=== PATIENT | male | born 1960 | race Caucasian/White ===

== ENCOUNTER 2022-03-27 06:24 | Inpatient (IN) | payer OTHER, MEDICAID ==
[~2022-03-27] VITALS: Ht 182.9 cm; Wt 65.9 kg
[2022-03-27 07:09] LABS: BASO % 0.3 % (0.0-1.0); HEMATOCRIT 38.8 % (42.0-52.0); HEMOGLOBIN 12.9 g/dl (13.5-17.5); LYMPH # 0.8 10^3/uL (1.5-5.0); MEAN CORPUSCULAR HEMOGLOBIN 29.4 pg (27.0-33.0); MEAN CORPUSCULAR HGB CONC 33.2 g/dl (32.0-36.5); MEAN CORPUSCULAR VOLUME 88.4 fl (80.0-96.0); MONO # 0.7 10^3/uL (0.0-0.8); MONO % 4.6 % (2.0-8.0); NEUTROPHILS # 14.3 10^3/uL (1.5-8.5); NEUTROPHILS % 89.5 % (36.0-66.0); PLATELET COUNT, AUTOMATED 179 10^3/uL (150-450); RED BLOOD COUNT 4.39 10^6/uL (4.30-6.10)
[2022-03-27] MEDS ORDERED: NS 1,000 ML IV ONE ×2 (07:25→08:50)
[2022-03-27 07:30] LABS: CK-MB VALUE MASS 8.5 NG/ML (<3.6)
[2022-03-27 07:31] LABS: ETHYL ALCOHOL (ETHANOL) 0.014 % (0.000-0.010)
[2022-03-27 07:32] LABS: BILIRUBIN,DIRECT 0.3 MG/DL (<0.4)
[2022-03-27 07:33] LABS: ALBUMIN 4.1 G/DL (3.2-5.2); ALKALINE PHOSPHATASE 56 U/L (46-116); ALT/SGPT 103 U/L (7.0-40); AST/SGOT 71 U/L (<34); BILIRUBIN,TOTAL 0.6 MG/DL (0.3-1.2); BLOOD UREA NITROGEN 19 MG/DL (9-23); CALCIUM LEVEL 8.5 MG/DL (8.3-10.6); CARBON DIOXIDE LEVEL 18 MMOL/L (20-31); CHLORIDE LEVEL 100 MMOL/L (98-107); CREATININE FOR GFR 0.85 MG/DL (0.70-1.30); GLOMERULAR FILTRATION RATE > 60.0 (>49); GLUCOSE, FASTING 75 MG/DL (74-106); POTASSIUM SERUM 4.1 MMOL/L (3.5-5.1); RSV AMPLIFICATION NEGATIVE (NEGATIVE); SODIUM LEVEL 133 MMOL/L (136-145)
[2022-03-27 07:35] LABS: THYROID STIMULATING HORMONE 0.902 uIU/ML (0.55-4.78)
[2022-03-27 07:36] LABS: BARBITURATES URINE NEGATIVE (NEGATIVE); BENZODIAZEPINES URINE NEGATIVE (NEGATIVE); COCAINE METABOLITE URINE NEGATIVE (NEGATIVE); METHADONE URINE NEGATIVE (NEGATIVE); OPIATES URINE NEGATIVE (NEGATIVE); PHENCYCLIDINE URINE NEGATIVE (NEGATIVE)
[2022-03-27 07:39] LABS: AMPHETAMINES LEVEL URINE POSITIVE (NEGATIVE); CANNABINOIDS URINE POSITIVE (NEGATIVE)
[2022-03-27 07:39] LABS: CPK CREATINE PHOSPHOKINASE 460 U/L (46-171); MB/CK RELATIVE INDEX 1.84 (< OR =4)
[2022-03-27 07:55] LABS: ACETAMINOPHEN LEVEL < 2.0 UG/ML (10.0-20.0); SALICYLATE LEVEL < 3.0 MG/DL (<30)
[2022-03-27] MEDS ORDERED: LORazepam 2 MG TAB PO PRN (08:35)
[2022-03-27] MEDS ORDERED: THIAMINE 200MG 2ML VIAL IM ONE (08:35)
[2022-03-27] MEDS ORDERED: ISOVUE-370 76% 100ML VIAL As Ordered ONE (08:58)
[2022-03-27] MEDS ORDERED: HOME MED LIST COMPLETE! XX SCH (09:10)
[2022-03-27] MEDS: FOLIC ACID 1MG TAB PO SCH (09:19)
[2022-03-27] MEDS: MULTIVITAMINS/MINERALS THERAP 1 TAB PO SCH (09:19)
[2022-03-27] MEDS: ENOXAPARIN 40MG/0.4ML SYRINGE (J1650 PER 10MG) SC SCH (09:20)
[2022-03-27] MEDS: THIAMINE 100 MG TAB PO SCH (22:23)
[2022-03-28 08:19] LABS: HEMATOCRIT 37.3 % (42.0-52.0); HEMOGLOBIN 12.5 g/dl (13.5-17.5); MEAN CORPUSCULAR HEMOGLOBIN 29.8 pg (27.0-33.0); MEAN CORPUSCULAR HGB CONC 33.5 g/dl (32.0-36.5); PLATELET COUNT, AUTOMATED 153 10^3/uL (150-450); RED BLOOD COUNT 4.19 10^6/uL (4.30-6.10); WHITE BLOOD COUNT 6.2 10^3/uL (4.0-10.0)
[2022-03-28 08:40] LABS: MAGNESIUM LEVEL 2.1 MG/DL (1.8-2.4)
[2022-03-28 08:42] LABS: PHOSPHORUS LEVEL 2.8 MG/DL (2.4-5.1)
[2022-03-28 08:45] LABS: BLOOD UREA NITROGEN 16 MG/DL (9-23); CARBON DIOXIDE LEVEL 24 MMOL/L (20-31); CHLORIDE LEVEL 107 MMOL/L (98-107); CREATININE FOR GFR 0.73 MG/DL (0.70-1.30); GLOMERULAR FILTRATION RATE > 60.0 (>49); GLUCOSE, FASTING 108 MG/DL (74-106); SODIUM LEVEL 139 MMOL/L (136-145)
[2022-03-28 09:30] LABS: BILIRUBIN,DIRECT 0.1 MG/DL (<0.4)
[2022-03-28] MEDS: THIAMINE 100 MG TAB PO SCH (09:44)
[2022-03-28] MEDS: FOLIC ACID 1MG TAB PO SCH (09:44)
[2022-03-28] MEDS: MULTIVITAMINS/MINERALS THERAP 1 TAB PO SCH (09:44)
[2022-03-28] MEDS: ENOXAPARIN 40MG/0.4ML SYRINGE (J1650 PER 10MG) SC SCH (09:51)
[2022-03-28 10:02] LABS: ALKALINE PHOSPHATASE 47 U/L (46-116); ALT/SGPT 76 U/L (7.0-40); AST/SGOT 51 U/L (<34); BILIRUBIN,TOTAL 0.3 MG/DL (0.3-1.2); TOTAL PROTEIN 5.9 G/DL (5.7-8.2)
[2022-03-28 13:46] VITALS: BP 136/73
[2022-03-28] MEDS ORDERED: THIA100TA PO (15:40)
[2022-03-28] MEDS ORDERED: FOLI1TAB11 PO (15:40)
[2022-03-28] MEDS ORDERED: VITMTA PO (15:40)
== END 2022-03-28 17:30 | disposition home or self-care (01) | DRG 52 ==
LOC: M ED 06:24 → EDBD 06:24 → M ED INP 08:30 → CANRESERV 03-28 13:25 → ENRESERV 03-28 13:25
PROVIDERS: ADMIT Internal Medicine; ATTEND Internal Medicine
DX: G92.8 Other toxic encephalopathy (principal); E87.20 Acidosis, unspecified; T68.XXXA Hypothermia, initial encounter; F12.90 Cannabis use, unspecified, uncomplicated; F15.90 Other stimulant use, unspecified, uncomplicated; F10.10 Alcohol abuse, uncomplicated; D72.829 Elevated white blood cell count, unspecified; R10.9 Unspecified abdominal pain; Z91.119 Patient's noncompliance with dietary regimen due to unspecified reason; X31.XXXA Exposure to excessive natural cold, initial encounter

== ENCOUNTER → 2022-07-18 | Outpatient (REF) | payer OTHER, MEDICAID ==
[~2022-07-18] MED LIST: FOLI1TAB11 PO; THIA100TA PO; VITMTA PO
[2022-07-18 17:28] LABS: BASO % 0.6 % (0.0-1.0); EOS # 0.2 10^3/uL (0.0-0.5); EOS % 2.2 % (0.0-3.0); HEMATOCRIT 45.5 % (42.0-52.0); HEMOGLOBIN 14.5 g/dl (13.5-17.5); LYMPH # 2.2 10^3/uL (1.5-5.0); LYMPH % 32.8 % (24.0-44.0); MEAN CORPUSCULAR HEMOGLOBIN 28.3 pg (27.0-33.0); MEAN CORPUSCULAR HGB CONC 31.9 g/dl (32.0-36.5); MEAN CORPUSCULAR VOLUME 88.9 fl (80.0-96.0); MONO # 0.5 10^3/uL (0.0-0.8); MONO % 7.9 % (2.0-8.0); NEUTROPHILS # 3.8 10^3/uL (1.5-8.5); NEUTROPHILS % 56.2 % (36.0-66.0); PLATELET COUNT, AUTOMATED 173 10^3/uL (150-450); RED BLOOD COUNT 5.12 10^6/uL (4.30-6.10); WHITE BLOOD COUNT 6.7 10^3/uL (4.0-10.0)
[2022-07-18 17:52] LABS: ALBUMIN 3.8 G/DL (3.2-5.2); ALKALINE PHOSPHATASE 55 U/L (46-116); ALT/SGPT 131 U/L (7.0-40); AST/SGOT 56 U/L (<34); BILIRUBIN,TOTAL 0.5 MG/DL (0.3-1.2); BLOOD UREA NITROGEN 17 MG/DL (9-23); CALCIUM LEVEL 9.2 MG/DL (8.3-10.6); CARBON DIOXIDE LEVEL 29 MMOL/L (20-31); CHLORIDE LEVEL 105 MMOL/L (98-107); CHOLESTEROL LEVEL 216 MG/DL (<200); CHOLESTEROL RISK RATIO 4.18 (<5); CREATININE FOR GFR 0.89 MG/DL (0.70-1.30); GLOMERULAR FILTRATION RATE > 60.0 (>49); GLUCOSE, FASTING 61 MG/DL (74-106); HDL CHOLESTEROL 51.6 MG/DL (>40); LDL CHOLESTEROL 143.4 MG/DL (<100); NON-HDL-C 164.4 MG/DL; POTASSIUM SERUM 3.8 MMOL/L (3.5-5.1); SODIUM LEVEL 141 MMOL/L (136-145); TOTAL 25(OH) VITAMIN D 8.9 NG/ML (20.0-100.0); TOTAL PROTEIN 7.5 G/DL (5.7-8.2); TRIGLYCERIDES LEVEL 105 MG/DL (<150)
[2022-07-18 17:53] LABS: FOLATE 16.8 NG/ML (>5.4); THYROID STIMULATING HORMONE 1.711 uIU/ML (0.55-4.78)
[2022-07-18 17:54] LABS: VITAMIN B12 LEVEL 308 PG/ML (211-911)
[2022-07-18 17:55] LABS: HEMOGLOBIN A1c 5.1 % (4.0-6.0)
== END ==
LOC: M LAB REF 16:18
PROVIDERS: ATTEND Nurse Practitioner Family
DX: R63.6 Underweight (principal); R53.83 Other fatigue; Z11.9 Encounter for screening for infectious and parasitic diseases, unspecified; R41.3 Other amnesia; F10.20 Alcohol dependence, uncomplicated; E55.9 Vitamin D deficiency, unspecified; E11.9 Type 2 diabetes mellitus without complications

== ENCOUNTER 2022-10-05 17:41 | Inpatient (IN) | payer OTHER ==
[~2022-10-05] VITALS: Ht 182.9 cm; Wt 80.5 kg
[2022-10-05] MEDS ORDERED: LORazepam 2 MG TAB PO PRN (18:30)
[2022-10-05 18:35] LABS: VENOUS HCO3 16.1 MMOL/L (23.0-27.0); VENOUS O2 SATURATION 95.1 % (60.0-80.0); VENOUS PARTIAL PRESSURE O2 75.3 mmHg (30.0-50.0); VENOUS PH 7.393 UNITS (7.330-7.430); VENOUS STANDARD HCO3 18.8 MMOL/L; VENOUS TOTAL CO2 16.9 MMOL/L (24.0-28.0)
[2022-10-05 18:42] LABS: BASO # 0.1 10^3/uL (0.0-0.2); BASO % 0.4 % (0.0-1.0); HEMATOCRIT 42.7 % (42.0-52.0); HEMOGLOBIN 14.8 g/dl (13.5-17.5); LYMPH # 0.9 10^3/uL (1.5-5.0); LYMPH % 4.4 % (24.0-44.0); MEAN CORPUSCULAR HGB CONC 34.7 g/dl (32.0-36.5); MEAN CORPUSCULAR VOLUME 83.7 fl (80.0-96.0); MONO # 0.8 10^3/uL (0.0-0.8); MONO % 3.7 % (2.0-8.0); NEUTROPHILS # 17.8 10^3/uL (1.5-8.5); NEUTROPHILS % 88.2 % (36.0-66.0); PLATELET COUNT, AUTOMATED 292 10^3/uL (150-450); WHITE BLOOD COUNT 20.2 10^3/uL (4.0-10.0)
[2022-10-05] MEDS: NS 1,000 ML IV SCH (19:00)
[2022-10-05 19:07] LABS: OSMOLALITY SERUM 296 MOSM/KG (275-295)
[2022-10-05 19:08] LABS: ETHYL ALCOHOL (ETHANOL) < 0.003 % (0.000-0.010)
[2022-10-05 19:09] LABS: ALBUMIN 4.3 G/DL (3.2-5.2); ALKALINE PHOSPHATASE 55 U/L (46-116); ALT/SGPT 59 U/L (7.0-40); AST/SGOT 40 U/L (<34); BILIRUBIN,DIRECT 0.1 MG/DL (<0.4); BILIRUBIN,TOTAL 0.4 MG/DL (0.3-1.2); BLOOD UREA NITROGEN 22 MG/DL (9-23); CALCIUM LEVEL 9.4 MG/DL (8.3-10.6); CARBON DIOXIDE LEVEL 17 MMOL/L (20-31); CHLORIDE LEVEL 95 MMOL/L (98-107); CREATININE FOR GFR 3.03 MG/DL (0.70-1.30); GLOMERULAR FILTRATION RATE 22.6 (>49); GLUCOSE, FASTING 295 MG/DL (74-106); POTASSIUM SERUM 4.7 MMOL/L (3.5-5.1); SALICYLATE LEVEL < 3.0 MG/DL (<30); SODIUM LEVEL 130 MMOL/L (136-145); TOTAL PROTEIN 8.1 G/DL (5.7-8.2)
[2022-10-05 19:12] LABS: THYROID STIMULATING HORMONE 1.342 uIU/ML (0.55-4.78)
[2022-10-05 19:18] LABS: AMPHETAMINES LEVEL URINE NEGATIVE (NEGATIVE); BARBITURATES URINE NEGATIVE (NEGATIVE); BENZODIAZEPINES URINE NEGATIVE (NEGATIVE); CANNABINOIDS URINE NEGATIVE (NEGATIVE); COCAINE METABOLITE URINE NEGATIVE (NEGATIVE); METHADONE URINE NEGATIVE (NEGATIVE); OPIATES URINE NEGATIVE (NEGATIVE); PHENCYCLIDINE URINE NEGATIVE (NEGATIVE)
[2022-10-05] MEDS: THIAMINE 200MG 2ML VIAL IM ONE (19:45)
[2022-10-05] MEDS ORDERED: MED REC IN PROGRESS XX SCH (21:25)
[2022-10-05] MEDS ORDERED: BACT800T5 PO (22:27)
[2022-10-05] MEDS ORDERED: HOME MED LIST COMPLETE! XX SCH (23:20)
[2022-10-05] MEDS: THIAMINE INJection 500 MG in NS 100 ML IV SCH (23:44)
[2022-10-05] MEDS ORDERED: cefTRIAXone SOD 1GM VIAL IM SCH (23:45)
[2022-10-06] VITALS (7 sets, daily range): BP systolic 100–119; BP diastolic 59–71; TEMP 97.5–98.9; O2SAT 97–100
[2022-10-06] MEDS: cefTRIAXone SOD 1 GM in D5W MINI-BAG PLUS 50 ML IV SCH (00:49)
[2022-10-06] MEDS: NS 1,000 ML IV SCH (00:49)
[2022-10-06] MEDS: HEPARIN SOD (PORCINE) 5000UNITS/ML 1ML VIAL/SYRINGE SC SCH (05:49)
[2022-10-06 07:42] LABS: BASO % 0.3 % (0.0-1.0); EOS % 0.3 % (0.0-3.0); HEMATOCRIT 36.7 % (42.0-52.0); HEMOGLOBIN 12.7 g/dl (13.5-17.5); LYMPH # 1.9 10^3/uL (1.5-5.0); LYMPH % 15.5 % (24.0-44.0); MEAN CORPUSCULAR HEMOGLOBIN 28.9 pg (27.0-33.0); MEAN CORPUSCULAR HGB CONC 34.6 g/dl (32.0-36.5); MEAN CORPUSCULAR VOLUME 83.6 fl (80.0-96.0); MONO # 1.1 10^3/uL (0.0-0.8); NEUTROPHILS # 8.9 10^3/uL (1.5-8.5); NEUTROPHILS % 74.1 % (36.0-66.0); PLATELET COUNT, AUTOMATED 239 10^3/uL (150-450); RED BLOOD COUNT 4.39 10^6/uL (4.30-6.10)
[2022-10-06 08:13] LABS: ALBUMIN 3.5 G/DL (3.2-5.2); BILIRUBIN,TOTAL 0.3 MG/DL (0.3-1.2); CALCIUM LEVEL 8.3 MG/DL (8.3-10.6); CREATININE FOR GFR 1.7 MG/DL (0.70-1.30); MAGNESIUM LEVEL 2.4 MG/DL (1.8-2.4); POTASSIUM SERUM 3.8 MMOL/L (3.5-5.1); TOTAL PROTEIN 6.6 G/DL (5.7-8.2)
[2022-10-06] MEDS ORDERED: FOLIC ACID 1MG TAB PO SCH (09:00)
[2022-10-06] MEDS ORDERED: MULTIVITAMINS/MINERALS THERAP 1 TAB PO SCH (09:00)
[2022-10-06] MEDS ORDERED: THIAMINE 100 MG TAB PO SCH (09:00)
[2022-10-06] MEDS: FOLIC ACID 1 MG in NS 50 ML IV SCH (10:08)
[2022-10-06 10:17] LABS: CREATININE,RANDOM URINE 64.1 MG/DL
[2022-10-06] MEDS: LR 1,000 ML IV SCH (16:44)
[2022-10-07 03:57] VITALS: BP 110/68; TEMP 96.9; O2SAT 99
[2022-10-07 06:12] LABS: BASO % 0.5 % (0.0-1.0); EOS # 0.1 10^3/uL (0.0-0.5); EOS % 1.3 % (0.0-3.0); HEMATOCRIT 37.8 % (42.0-52.0); HEMOGLOBIN 12.5 g/dl (13.5-17.5); LYMPH # 1.6 10^3/uL (1.5-5.0); LYMPH % 29.5 % (24.0-44.0); MEAN CORPUSCULAR HEMOGLOBIN 28.9 pg (27.0-33.0); MEAN CORPUSCULAR HGB CONC 33.1 g/dl (32.0-36.5); MEAN CORPUSCULAR VOLUME 87.3 fl (80.0-96.0); MONO # 0.5 10^3/uL (0.0-0.8); NEUTROPHILS # 3.3 10^3/uL (1.5-8.5); PLATELET COUNT, AUTOMATED 187 10^3/uL (150-450); RED BLOOD COUNT 4.33 10^6/uL (4.30-6.10); WHITE BLOOD COUNT 5.6 10^3/uL (4.0-10.0)
[2022-10-07 06:40] LABS: BLOOD UREA NITROGEN 15 MG/DL (9-23); CARBON DIOXIDE LEVEL 24 MMOL/L (20-31); CHLORIDE LEVEL 106 MMOL/L (98-107); GLOMERULAR FILTRATION RATE > 60.0 (>49); GLUCOSE, FASTING 100 MG/DL (74-106); PHOSPHORUS LEVEL 2.7 MG/DL (2.4-5.1); POTASSIUM SERUM 4.3 MMOL/L (3.5-5.1); SODIUM LEVEL 137 MMOL/L (136-145)
[2022-10-07 08:38] VITALS: BP 117/68; TEMP 98.2; O2SAT 99
[2022-10-07 12:29] VITALS: BP 126/71; TEMP 97.9; O2SAT 100
[2022-10-07 20:00] VITALS: BP 131/81; TEMP 97.9; O2SAT 99
[2022-10-07] MEDS: CEFDINIR 300 MG CAP (OMNICEF) PO SCH (21:54)
[2022-10-08] VITALS: BP 118/87; TEMP 97.4; O2SAT 99
[2022-10-08 05:10] LABS: BASO % 0.5 % (0.0-1.0); EOS # 0.1 10^3/uL (0.0-0.5); EOS % 1.8 % (0.0-3.0); HEMATOCRIT 40.1 % (42.0-52.0); HEMOGLOBIN 13.2 g/dl (13.5-17.5); LYMPH # 2.4 10^3/uL (1.5-5.0); LYMPH % 42.4 % (24.0-44.0); MEAN CORPUSCULAR HEMOGLOBIN 28.5 pg (27.0-33.0); MEAN CORPUSCULAR HGB CONC 32.9 g/dl (32.0-36.5); MEAN CORPUSCULAR VOLUME 86.6 fl (80.0-96.0); MONO # 0.5 10^3/uL (0.0-0.8); MONO % 8.4 % (2.0-8.0); NEUTROPHILS # 2.6 10^3/uL (1.5-8.5); PLATELET COUNT, AUTOMATED 199 10^3/uL (150-450); RED BLOOD COUNT 4.63 10^6/uL (4.30-6.10); WHITE BLOOD COUNT 5.6 10^3/uL (4.0-10.0)
[2022-10-08 05:36] LABS: ALBUMIN 3.3 G/DL (3.2-5.2); BLOOD UREA NITROGEN 13 MG/DL (9-23); CALCIUM LEVEL 8.7 MG/DL (8.3-10.6); CARBON DIOXIDE LEVEL 28 MMOL/L (20-31); CHLORIDE LEVEL 105 MMOL/L (98-107); CREATININE FOR GFR 0.95 MG/DL (0.70-1.30); GLOMERULAR FILTRATION RATE > 60.0 (>49); GLUCOSE, FASTING 99 MG/DL (74-106); PHOSPHORUS LEVEL 3.3 MG/DL (2.4-5.1); POTASSIUM SERUM 4.7 MMOL/L (3.5-5.1); SODIUM LEVEL 139 MMOL/L (136-145)
[2022-10-08 07:54] VITALS: BP 122/72; TEMP 96.7; O2SAT 100
[2022-10-08 10:28] LABS: IRON (FE) 138 UG/DL (65-175); PERCENT SATURATION 50.4 % (19.7-50.0); TOTAL IRON BINDING CAPACITY 274 UG/DL (250-425)
[2022-10-08 10:31] LABS: FERRITIN 351.8 NG/ML (10.5-307.3); FOLATE > 24.00 NG/ML (>5.4); VITAMIN B12 LEVEL 299 PG/ML (211-911)
[2022-10-08] MEDS: CYANOCOBALAMIN 1,000MCG/ML 1ML VIAL IM SCH (16:36)
[2022-10-08 20:28] VITALS: BP 125/75; TEMP 97.9; O2SAT 99
[2022-10-09 06:00] VITALS: BP 101/61; TEMP 97.9; O2SAT 99
[2022-10-09 06:31] LABS: BASO % 0.6 % (0.0-1.0); EOS # 0.2 10^3/uL (0.0-0.5); EOS % 2.9 % (0.0-3.0); HEMATOCRIT 41.5 % (42.0-52.0); HEMOGLOBIN 13.7 g/dl (13.5-17.5); LYMPH # 1.7 10^3/uL (1.5-5.0); LYMPH % 26.8 % (24.0-44.0); MEAN CORPUSCULAR HEMOGLOBIN 28.9 pg (27.0-33.0); MEAN CORPUSCULAR VOLUME 87.6 fl (80.0-96.0); MONO # 0.4 10^3/uL (0.0-0.8); MONO % 6.7 % (2.0-8.0); NEUTROPHILS % 61.8 % (36.0-66.0); PLATELET COUNT, AUTOMATED 199 10^3/uL (150-450); RED BLOOD COUNT 4.74 10^6/uL (4.30-6.10); WHITE BLOOD COUNT 6.5 10^3/uL (4.0-10.0)
[2022-10-09 06:59] LABS: ALBUMIN 3.3 G/DL (3.2-5.2); BLOOD UREA NITROGEN 13 MG/DL (9-23); CALCIUM LEVEL 8.3 MG/DL (8.3-10.6); CARBON DIOXIDE LEVEL 24 MMOL/L (20-31); CHLORIDE LEVEL 105 MMOL/L (98-107); GLOMERULAR FILTRATION RATE > 60.0 (>49); GLUCOSE, FASTING 97 MG/DL (74-106); PHOSPHORUS LEVEL 3.6 MG/DL (2.4-5.1); SODIUM LEVEL 136 MMOL/L (136-145)
[2022-10-09] MEDS: THIAMINE INJection 500 MG in NS 100 ML IV SCH (09:01)
[2022-10-09] MEDS: FOLIC ACID 1MG TAB PO SCH (09:02)
[2022-10-09 14:00] VITALS: BP 116/65; TEMP 97.2; O2SAT 99
[2022-10-09 20:07] VITALS: BP 124/78; TEMP 98.4; O2SAT 98
[2022-10-10 06:10] LABS: BASO % 0.8 % (0.0-1.0); EOS # 0.1 10^3/uL (0.0-0.5); EOS % 2.5 % (0.0-3.0); HEMATOCRIT 38.3 % (42.0-52.0); HEMOGLOBIN 12.5 g/dl (13.5-17.5); LYMPH # 1.4 10^3/uL (1.5-5.0); LYMPH % 26.8 % (24.0-44.0); MEAN CORPUSCULAR HEMOGLOBIN 28.9 pg (27.0-33.0); MEAN CORPUSCULAR HGB CONC 32.6 g/dl (32.0-36.5); MEAN CORPUSCULAR VOLUME 88.5 fl (80.0-96.0); MONO # 0.3 10^3/uL (0.0-0.8); MONO % 6.2 % (2.0-8.0); NEUTROPHILS # 3.2 10^3/uL (1.5-8.5); NEUTROPHILS % 61.9 % (36.0-66.0); PLATELET COUNT, AUTOMATED 178 10^3/uL (150-450); RED BLOOD COUNT 4.33 10^6/uL (4.30-6.10); WHITE BLOOD COUNT 5.1 10^3/uL (4.0-10.0)
[2022-10-10 06:20] VITALS: BP 106/60; TEMP 97.9; O2SAT 99
[2022-10-10 06:37] LABS: BLOOD UREA NITROGEN 10 MG/DL (9-23); CALCIUM LEVEL 9.3 MG/DL (8.3-10.6); CARBON DIOXIDE LEVEL 26 MMOL/L (20-31); CHLORIDE LEVEL 108 MMOL/L (98-107); CREATININE FOR GFR 0.78 MG/DL (0.70-1.30); GLOMERULAR FILTRATION RATE > 60.0 (>49); GLUCOSE, FASTING 108 MG/DL (74-106); PHOSPHORUS LEVEL 3.1 MG/DL (2.4-5.1); POTASSIUM SERUM 4.2 MMOL/L (3.5-5.1); SODIUM LEVEL 136 MMOL/L (136-145)
[2022-10-10 14:00] VITALS: BP 116/72; TEMP 98.8; O2SAT 99
[2022-10-10 19:01] VITALS: BP 130/74; TEMP 97.9; O2SAT 100
[2022-10-10] MEDS: THIAMINE 100 MG TAB PO SCH (20:22)
[2022-10-11 06:12] LABS: BASO # 0.1 10^3/uL (0.0-0.2); BASO % 0.8 % (0.0-1.0); EOS # 0.1 10^3/uL (0.0-0.5); EOS % 1.9 % (0.0-3.0); HEMATOCRIT 39.1 % (42.0-52.0); HEMOGLOBIN 12.9 g/dl (13.5-17.5); LYMPH # 1.6 10^3/uL (1.5-5.0); LYMPH % 26.3 % (24.0-44.0); MEAN CORPUSCULAR HEMOGLOBIN 28.8 pg (27.0-33.0); MEAN CORPUSCULAR VOLUME 87.3 fl (80.0-96.0); MONO # 0.4 10^3/uL (0.0-0.8); MONO % 6.9 % (2.0-8.0); NEUTROPHILS # 3.9 10^3/uL (1.5-8.5); NEUTROPHILS % 62.3 % (36.0-66.0); PLATELET COUNT, AUTOMATED 193 10^3/uL (150-450); RED BLOOD COUNT 4.48 10^6/uL (4.30-6.10); WHITE BLOOD COUNT 6.2 10^3/uL (4.0-10.0)
[2022-10-11 06:39] LABS: ALBUMIN 3.2 G/DL (3.2-5.2); BLOOD UREA NITROGEN 10 MG/DL (9-23); CALCIUM LEVEL 8.5 MG/DL (8.3-10.6); CARBON DIOXIDE LEVEL 25 MMOL/L (20-31); CHLORIDE LEVEL 107 MMOL/L (98-107); CREATININE FOR GFR 0.81 MG/DL (0.70-1.30); GLOMERULAR FILTRATION RATE > 60.0 (>49); GLUCOSE, FASTING 100 MG/DL (74-106); PHOSPHORUS LEVEL 2.8 MG/DL (2.4-5.1); POTASSIUM SERUM 4.3 MMOL/L (3.5-5.1); SODIUM LEVEL 139 MMOL/L (136-145)
[2022-10-11 06:45] VITALS: BP 108/68; TEMP 97.9; O2SAT 99
[2022-10-12 06:00] VITALS: BP 97/66; TEMP 97.1; O2SAT 98
[2022-10-12] MEDS: THIAMINE 100 MG TAB PO SCH (08:57)
[2022-10-13 06:00] VITALS: BP 101/66; TEMP 97.9; O2SAT 97
[2022-10-14 06:00] VITALS: BP 105/67; TEMP 97.9; O2SAT 94
[2022-10-14] MEDS: CYANOCOBALAMIN 500 MCG TAB PO SCH (13:43)
[2022-10-15 06:00] VITALS: BP 107/67; TEMP 97.3; O2SAT 95
[2022-10-16 06:40] VITALS: BP 108/67; TEMP 98.6; O2SAT 100
[2022-10-17 06:29] VITALS: BP 120/71; TEMP 97.7; O2SAT 98
[2022-10-18 06:07] VITALS: BP 121/72; TEMP 97.7; O2SAT 100
[2022-10-18] MEDS: THIAMINE 100 MG TAB PO SCH (12:20)
[2022-10-19 06:00] VITALS: BP 123/73; TEMP 98.6; O2SAT 94
[2022-10-20 06:00] VITALS: BP 122/68; TEMP 98.2; O2SAT 99
[2022-10-21 05:16] VITALS: BP 113/65; TEMP 97.7; O2SAT 99
[2022-10-22 06:00] VITALS: BP 116/80; TEMP 97.9; O2SAT 98
[2022-10-23 06:00] VITALS: BP 114/68; TEMP 98.2; O2SAT 100
[2022-10-24 06:00] VITALS: BP 108/55; TEMP 98.6; O2SAT 98
[2022-10-25 06:00] VITALS: BP 111/67; TEMP 97.7; O2SAT 98
[2022-10-26 05:20] VITALS: BP 115/70; TEMP 97.2; O2SAT 99
[2022-10-26 09:45] LABS: HEMATOCRIT 45.5 % (42.0-52.0); HEMOGLOBIN 15.2 g/dl (13.5-17.5); MEAN CORPUSCULAR HEMOGLOBIN 28.8 pg (27.0-33.0); MEAN CORPUSCULAR HGB CONC 33.4 g/dl (32.0-36.5); MEAN CORPUSCULAR VOLUME 86.3 fl (80.0-96.0); PLATELET COUNT, AUTOMATED 206 10^3/uL (150-450); RED BLOOD COUNT 5.27 10^6/uL (4.30-6.10); WHITE BLOOD COUNT 7.3 10^3/uL (4.0-10.0)
[2022-10-26 10:34] LABS: BLOOD UREA NITROGEN 14 MG/DL (9-23); CALCIUM LEVEL 9.3 MG/DL (8.3-10.6); CARBON DIOXIDE LEVEL 26 MMOL/L (20-31); CHLORIDE LEVEL 102 MMOL/L (98-107); CREATININE FOR GFR 0.78 MG/DL (0.70-1.30); GLOMERULAR FILTRATION RATE > 60.0 (>49); GLUCOSE, FASTING 145 MG/DL (74-106); POTASSIUM SERUM 4.1 MMOL/L (3.5-5.1); SODIUM LEVEL 137 MMOL/L (136-145)
[2022-10-27 05:56] VITALS: BP 112/68; TEMP 98.1; O2SAT 99
[2022-10-28 04:50] VITALS: BP 121/76; TEMP 97.5; O2SAT 99
[2022-10-29 04:50] VITALS: BP 113/72; TEMP 97.9; O2SAT 92
[2022-10-30 05:20] VITALS: BP 122/87; TEMP 98.2; O2SAT 99
[2022-10-31 05:53] VITALS: BP 132/86; TEMP 98.8; O2SAT 100
[2022-11-01 06:12] VITALS: BP 129/87; TEMP 99; O2SAT 99
[2022-11-02 06:00] VITALS: BP 118/79; TEMP 98.1; O2SAT 94
[2022-11-03 06:00] VITALS: BP 120/78; TEMP 97.7; O2SAT 94
[2022-11-04 05:57] VITALS: BP 116/75; TEMP 97.9; O2SAT 98
[2022-11-05 06:20] VITALS: BP 119/75; TEMP 97.9; O2SAT 98
[2022-11-06 06:06] VITALS: BP 116/75; TEMP 98.8; O2SAT 99
[2022-11-07 05:17] VITALS: BP 135/77; TEMP 97; O2SAT 98
[2022-11-08 04:59] VITALS: BP 134/77; TEMP 96.6; O2SAT 100
[2022-11-09 06:04] VITALS: BP 134/76; TEMP 98.4; O2SAT 98
[2022-11-10 07:11] VITALS: BP 128/79; TEMP 97.2; O2SAT 100
[2022-11-11 06:00] VITALS: BP 142/84; TEMP 98.8; O2SAT 98
[2022-11-12 06:00] VITALS: BP 130/79; TEMP 97.9; O2SAT 99
[2022-11-13 05:58] VITALS: BP 125/101; TEMP 97.9; O2SAT 97
[2022-11-13 06:20] VITALS: BP 131/97
[2022-11-13 09:19] LABS: BASO % 0.6 % (0.0-1.0); EOS # 0.2 10^3/uL (0.0-0.5); EOS % 3.3 % (0.0-3.0); HEMOGLOBIN 14.8 g/dl (13.5-17.5); LYMPH # 2.2 10^3/uL (1.5-5.0); LYMPH % 32.1 % (24.0-44.0); MEAN CORPUSCULAR HEMOGLOBIN 28.8 pg (27.0-33.0); MEAN CORPUSCULAR HGB CONC 33.6 g/dl (32.0-36.5); MEAN CORPUSCULAR VOLUME 85.6 fl (80.0-96.0); MONO # 0.6 10^3/uL (0.0-0.8); MONO % 8.3 % (2.0-8.0); NEUTROPHILS # 3.8 10^3/uL (1.5-8.5); NEUTROPHILS % 54.8 % (36.0-66.0); PLATELET COUNT, AUTOMATED 174 10^3/uL (150-450); RED BLOOD COUNT 5.14 10^6/uL (4.30-6.10)
[2022-11-13 09:39] LABS: ALBUMIN 3.6 G/DL (3.2-5.2); ALKALINE PHOSPHATASE 49 U/L (46-116); ALT/SGPT 100 U/L (7.0-40); AST/SGOT 37 U/L (<34); BILIRUBIN,TOTAL 0.5 MG/DL (0.3-1.2); BLOOD UREA NITROGEN 12 MG/DL (9-23); CALCIUM LEVEL 9.1 MG/DL (8.3-10.6); CARBON DIOXIDE LEVEL 25 MMOL/L (20-31); CHLORIDE LEVEL 106 MMOL/L (98-107); CREATININE FOR GFR 0.73 MG/DL (0.70-1.30); GLOMERULAR FILTRATION RATE > 60.0 (>49); GLUCOSE, FASTING 104 MG/DL (74-106); MAGNESIUM LEVEL 2.1 MG/DL (1.8-2.4); POTASSIUM SERUM 3.9 MMOL/L (3.5-5.1); SODIUM LEVEL 139 MMOL/L (136-145); TOTAL PROTEIN 7.5 G/DL (5.7-8.2)
[2022-11-15 06:30] VITALS: BP 129/81; TEMP 98.6; O2SAT 96
[2022-11-16 06:00] VITALS: BP 128/79; TEMP 98.8; O2SAT 93
[2022-11-17 06:00] VITALS: BP 125/77; TEMP 97.5; O2SAT 94
[2022-11-18 06:00] VITALS: BP_SYST 111; BP_SYST 127; BP_DIAS 71; BP_DIAS 78; TEMP 98.1; TEMP 98.2; O2SAT 95
[2022-11-19 06:02] VITALS: BP 125/76; TEMP 97; O2SAT 98
[2022-11-20 05:32] VITALS: BP 124/73; TEMP 98.1; O2SAT 99
[2022-11-20 14:02] LABS: BASO % 0.5 % (0.0-1.0); EOS # 0.2 10^3/uL (0.0-0.5); EOS % 2.6 % (0.0-3.0); HEMATOCRIT 44.3 % (42.0-52.0); LYMPH # 2.6 10^3/uL (1.5-5.0); LYMPH % 30.7 % (24.0-44.0); MEAN CORPUSCULAR HEMOGLOBIN 28.7 pg (27.0-33.0); MEAN CORPUSCULAR HGB CONC 33.9 g/dl (32.0-36.5); MEAN CORPUSCULAR VOLUME 84.9 fl (80.0-96.0); MONO # 0.6 10^3/uL (0.0-0.8); MONO % 7.6 % (2.0-8.0); NEUTROPHILS # 4.8 10^3/uL (1.5-8.5); NEUTROPHILS % 57.4 % (36.0-66.0); PLATELET COUNT, AUTOMATED 170 10^3/uL (150-450); RED BLOOD COUNT 5.22 10^6/uL (4.30-6.10); WHITE BLOOD COUNT 8.4 10^3/uL (4.0-10.0)
[2022-11-20 14:14] LABS: INR 1.01
[2022-11-20 14:33] LABS: ALBUMIN 3.8 G/DL (3.2-5.2); ALKALINE PHOSPHATASE 51 U/L (46-116); ALT/SGPT 117 U/L (7.0-40); AST/SGOT 38 U/L (<34); BILIRUBIN,TOTAL 0.4 MG/DL (0.3-1.2); BLOOD UREA NITROGEN 11 MG/DL (9-23); CALCIUM LEVEL 9.3 MG/DL (8.3-10.6); CARBON DIOXIDE LEVEL 26 MMOL/L (20-31); CHLORIDE LEVEL 105 MMOL/L (98-107); CREATININE FOR GFR 0.87 MG/DL (0.70-1.30); GLOMERULAR FILTRATION RATE > 60.0 (>49); GLUCOSE, FASTING 137 MG/DL (74-106); POTASSIUM SERUM 4.2 MMOL/L (3.5-5.1); SODIUM LEVEL 139 MMOL/L (136-145); TOTAL PROTEIN 7.8 G/DL (5.7-8.2)
[2022-11-20 14:35] LABS: VITAMIN B12 LEVEL 642 PG/ML (211-911)
[2022-11-21 05:18] VITALS: BP 133/99; TEMP 98.2; O2SAT 99
[2022-11-21] MEDS: RIVAROXABAN 10MG TAB (XARELTO) PO SCH (09:00)
[2022-11-21] MEDS: LORazepam 0.5 MG TAB PO PRN (09:11)
[2022-11-22 06:00] VITALS: TEMP 97.7; O2SAT 97
[2022-11-23 05:50] VITALS: BP 131/98; TEMP 98.4; O2SAT 98
[2022-11-24 05:32] VITALS: BP 131/97; TEMP 98.2; O2SAT 97
[2022-11-24 07:42] VITALS: BP 130/78
[2022-11-25 06:04] VITALS: BP 126/68; TEMP 97.9; O2SAT 98
[2022-11-26 06:00] VITALS: BP 103/55; TEMP 97; O2SAT 98
[2022-11-27 06:00] VITALS: BP 121/85; TEMP 98.6; O2SAT 97
[2022-11-28 05:36] VITALS: BP 108/76; TEMP 97.9; O2SAT 98
[2022-11-29 05:58] VITALS: BP 139/83; TEMP 98.4; O2SAT 98
[2022-11-30 06:00] VITALS: BP 110/66; TEMP 98.4; O2SAT 97
[2022-12-01 06:00] VITALS: BP 141/87; TEMP 98.1; O2SAT 96
[2022-12-02 05:32] VITALS: BP 124/82; TEMP 98.4; O2SAT 99
[2022-12-03 05:17] VITALS: BP 144/90; TEMP 98.4; O2SAT 98
[2022-12-04 05:40] VITALS: BP 141/90; TEMP 98.6; O2SAT 97
[2022-12-05 06:00] VITALS: BP 109/64; TEMP 97.5; O2SAT 96
[2022-12-06 05:30] VITALS: BP 133/86; TEMP 98.4; O2SAT 98
[2022-12-07 06:46] VITALS: BP 133/84; TEMP 98.1; O2SAT 97
[2022-12-08 06:00] VITALS: BP 134/78; TEMP 97.2; O2SAT 99
[2022-12-09 05:29] VITALS: BP 130/80; TEMP 97.9; O2SAT 98
[2022-12-10 05:49] VITALS: BP 124/80; TEMP 97.2
[2022-12-11 04:39] VITALS: BP 113/73; TEMP 97.9; O2SAT 97
[2022-12-12 05:00] VITALS: BP 114/73; TEMP 98.1; O2SAT 97
[2022-12-13 05:19] VITALS: BP 116/71; TEMP 98.1; O2SAT 96
[2022-12-14 05:32] VITALS: BP 114/87; TEMP 96.8; O2SAT 99
[2022-12-15 06:23] VITALS: BP 119/53; TEMP 97.5; O2SAT 98
[2022-12-16 05:38] VITALS: BP 138/90; TEMP 98.1; O2SAT 98
[2022-12-17 05:45] VITALS: BP 117/81; TEMP 98.4; O2SAT 98
[2022-12-18 06:55] VITALS: BP 140/86; TEMP 97.7; O2SAT 96
[2022-12-19 06:27] VITALS: BP 132/68; TEMP 97.9; O2SAT 98
[2022-12-20 06:00] VITALS: BP 132/73; TEMP 98.1; O2SAT 97
[2022-12-21 06:30] VITALS: BP 113/86; TEMP 97.8; O2SAT 99
[2022-12-22 04:52] VITALS: BP 122/88; TEMP 97.9; O2SAT 98
[2022-12-23 06:00] VITALS: BP 120/60; TEMP 98.2; O2SAT 94
[2022-12-24 06:00] VITALS: BP 113/82; TEMP 97.3; O2SAT 98
[2022-12-25 06:20] VITALS: BP 131/84; TEMP 97.2; O2SAT 97
[2022-12-26 06:35] VITALS: BP 127/84; TEMP 98.6; O2SAT 96
[2022-12-27 06:40] VITALS: BP 121/88; TEMP 98.1; O2SAT 96
[2022-12-28 06:00] VITALS: BP 118/68; TEMP 98.2; O2SAT 97
[2022-12-29 05:13] VITALS: BP 141/86; TEMP 98.6; O2SAT 97
[2022-12-30 05:24] VITALS: BP 113/82; TEMP 97.2; O2SAT 97
[2022-12-31 05:59] VITALS: BP 121/70; TEMP 97.9; O2SAT 96
[2023-01-01 05:32] VITALS: BP 122/72; TEMP 97; O2SAT 99
[2023-01-02 06:00] VITALS: BP 119/85; TEMP 98.1; O2SAT 99
[2023-01-03 06:36] VITALS: BP 119/77; TEMP 98.4; O2SAT 98
[2023-01-04 06:35] VITALS: BP 135/83; TEMP 97; O2SAT 98
[2023-01-05 06:00] VITALS: BP 128/79; TEMP 98.1; O2SAT 97
[2023-01-06 06:00] VITALS: TEMP 98.6; O2SAT 98
[2023-01-06 09:30] VITALS: BP 141/91; TEMP 98.2; O2SAT 99
[2023-01-07 06:00] VITALS: BP 136/83; TEMP 98.6; O2SAT 98
[2023-01-08 06:35] VITALS: BP 130/76; TEMP 98.1; O2SAT 98
[2023-01-09 06:15] VITALS: BP 134/93; TEMP 98.2; O2SAT 97
[2023-01-10 06:30] VITALS: BP 126/89; TEMP 97.5; O2SAT 98
[2023-01-11 04:45] VITALS: BP 145/90; TEMP 97.5; O2SAT 96
[2023-01-11] MEDS ORDERED: QUEtiapine FUMARATE 12.5 MG HALF-TAB PO PRN (17:25)
[2023-01-12 06:00] VITALS: BP 127/85; TEMP 98.6; O2SAT 96
[2023-01-13 05:24] VITALS: BP 120/80; TEMP 96.1; O2SAT 98
[2023-01-14 06:00] VITALS: BP 130/80; TEMP 97.7; O2SAT 99
[2023-01-15 06:00] VITALS: BP 142/89; TEMP 98.2; O2SAT 92
[2023-01-16 06:00] VITALS: BP 135/63; TEMP 97.7; O2SAT 93
[2023-01-17 04:57] VITALS: BP 119/76; TEMP 97.3; O2SAT 95
[2023-01-17 12:52] VITALS: BP 149/109
[2023-01-17] MEDS ORDERED: ASPIRIN 325 MG TAB PO ONE (13:05)
[2023-01-17 13:10] LABS: HEMATOCRIT 49.8 % (42.0-52.0); HEMOGLOBIN 16.9 g/dl (13.5-17.5); MEAN CORPUSCULAR HGB CONC 33.9 g/dl (32.0-36.5); MEAN CORPUSCULAR VOLUME 85.6 fl (80.0-96.0); PLATELET COUNT, AUTOMATED 233 10^3/uL (150-450); RED BLOOD COUNT 5.82 10^6/uL (4.30-6.10); WHITE BLOOD COUNT 8.2 10^3/uL (4.0-10.0)
[2023-01-17 13:20] VITALS: BP 138/82
[2023-01-17] MEDS ORDERED: ISOVUE-370 76% 100ML VIAL As Ordered ONE (13:22)
[2023-01-17 13:23] LABS: INR 1.03; PROTHROMBIN TIME 13.2 SECONDS (12.5-14.5)
[2023-01-17] MEDS ORDERED: FIORICET TAB PO ONE (13:40)
[2023-01-17] MEDS ORDERED: KETOROLAC 30 MG/ML 1ML VIAL IV ONE (13:40)
[2023-01-17] MEDS ORDERED: MORPHINE 2 MG/ML 1ML VIAL IV ONE (13:40)
[2023-01-17 13:45] LABS: ALBUMIN 3.6 G/DL (3.2-5.2); ALKALINE PHOSPHATASE 77 U/L (46-116); ALT/SGPT 460 U/L (7.0-40); AST/SGOT 176 U/L (<34); BILIRUBIN,TOTAL 0.4 MG/DL (0.3-1.2); BLOOD UREA NITROGEN 13 MG/DL (9-23); CALCIUM LEVEL 9.1 MG/DL (8.3-10.6); CARBON DIOXIDE LEVEL 27 MMOL/L (20-31); CHLORIDE LEVEL 101 MMOL/L (98-107); CHOLESTEROL LEVEL 240 MG/DL (<200); CREATININE FOR GFR 0.78 MG/DL (0.70-1.30); GLOMERULAR FILTRATION RATE > 60.0 (>49); GLUCOSE, FASTING 78 MG/DL (74-106); POTASSIUM SERUM 4.1 MMOL/L (3.5-5.1); SODIUM LEVEL 136 MMOL/L (136-145); TOTAL PROTEIN 7.8 G/DL (5.7-8.2); TRIGLYCERIDES LEVEL 294 MG/DL (<150)
[2023-01-17 14:00] VITALS: BP 124/82; TEMP 98.1; O2SAT 99
[2023-01-17 18:38] LABS: HDL CHOLESTEROL 39.3 MG/DL (>40); LDL CHOLESTEROL 141.9 MG/DL (<100); NON-HDL-C 200.7 MG/DL
[2023-01-17 22:41] VITALS: BP 131/84; TEMP 98.1; O2SAT 98
[2023-01-18 06:00] VITALS: BP 116/76; TEMP 98.8; O2SAT 100
[2023-01-19 05:32] VITALS: BP 122/87; TEMP 97.7; O2SAT 100
[2023-01-20 06:35] VITALS: BP 116/66; TEMP 97.9; O2SAT 98
[2023-01-20 08:00] VITALS: BP 124/70; TEMP 97.9; O2SAT 98
[2023-01-21 05:15] VITALS: BP 142/79; TEMP 98.2; O2SAT 98
[2023-01-21] MEDS: VANICREAM MOISTURIZING SKIN CREAM 113GM TUBE TOP SCH (12:17)
[2023-01-22 05:41] VITALS: BP 123/87; TEMP 98.8; O2SAT 98
[2023-01-23 06:00] VITALS: BP 117/60; TEMP 97.9; O2SAT 99
[2023-01-23] MEDS: ASPIRIN 81MG ENTERIC TABLET PO SCH (12:09)
[2023-01-23] MEDS: ATORVASTATIN 20 MG TAB PO SCH (20:04)
[2023-01-23 20:11] VITALS: BP 145/89; TEMP 97.9; O2SAT 98
[2023-01-25 06:00] VITALS: BP 137/97; TEMP 97.7; O2SAT 98
[2023-01-26 06:00] VITALS: BP 136/90; TEMP 98.2; O2SAT 99
[2023-01-27 06:24] VITALS: BP 133/90; TEMP 98.2; O2SAT 97
[2023-01-28 06:05] VITALS: TEMP 98.2; O2SAT 100
[2023-01-31 05:42] VITALS: BP 120/73; TEMP 98.1; O2SAT 96
[2023-01-31 14:00] VITALS: BP 134/90; TEMP 98.1; O2SAT 98
[2023-02-01 06:00] VITALS: BP 121/66; TEMP 98.4; O2SAT 99
[2023-02-01 08:15] VITALS: BP 138/82; TEMP 98.2; O2SAT 98
[2023-02-01 14:00] VITALS: BP 134/90; TEMP 98.1; O2SAT 98
[2023-02-02 06:00] VITALS: BP 132/62; TEMP 97.3; O2SAT 99
[2023-02-03 05:13] VITALS: BP 102/81; TEMP 98.1; O2SAT 98
[2023-02-03 20:04] VITALS: BP 125/73
[2023-02-04 05:08] VITALS: BP 122/72; TEMP 98.2; O2SAT 96
[2023-02-05 05:50] VITALS: BP 118/70; TEMP 97.9; O2SAT 98
[2023-02-06 07:56] VITALS: BP 120/75; TEMP 98.8; O2SAT 97
[2023-02-07 06:18] VITALS: BP 130/80; TEMP 98.2; O2SAT 99
[2023-02-08 06:00] VITALS: BP 120/70; TEMP 97.9; O2SAT 100
[2023-02-09 06:00] VITALS: BP 106/68; TEMP 98.6; O2SAT 98
[2023-02-09] MEDS: ACETAMINOPHEN TAB 650MG DOSE (2X325MG) PO ONE (16:54)
[2023-02-10 05:08] VITALS: BP 104/69; TEMP 97.4; O2SAT 98
[2023-02-10 10:23] LABS: BASO % 0.4 % (0.0-1.0); EOS # 0.1 10^3/uL (0.0-0.5); EOS % 1.7 % (0.0-3.0); HEMATOCRIT 48.6 % (42.0-52.0); HEMOGLOBIN 16.3 g/dl (13.5-17.5); LYMPH # 2.1 10^3/uL (1.5-5.0); LYMPH % 28.4 % (24.0-44.0); MEAN CORPUSCULAR HEMOGLOBIN 28.6 pg (27.0-33.0); MEAN CORPUSCULAR HGB CONC 33.5 g/dl (32.0-36.5); MEAN CORPUSCULAR VOLUME 85.4 fl (80.0-96.0); MONO # 0.7 10^3/uL (0.0-0.8); MONO % 8.7 % (2.0-8.0); NEUTROPHILS # 4.5 10^3/uL (1.5-8.5); NEUTROPHILS % 60.3 % (36.0-66.0); PLATELET COUNT, AUTOMATED 246 10^3/uL (150-450); RED BLOOD COUNT 5.69 10^6/uL (4.30-6.10); WHITE BLOOD COUNT 7.5 10^3/uL (4.0-10.0)
[2023-02-10 10:45] LABS: BLOOD UREA NITROGEN 9 MG/DL (9-23); CARBON DIOXIDE LEVEL 26 MMOL/L (20-31); CHLORIDE LEVEL 103 MMOL/L (98-107); CREATININE FOR GFR 0.77 MG/DL (0.70-1.30); GLOMERULAR FILTRATION RATE > 60.0 (>49); GLUCOSE, FASTING 120 MG/DL (74-106); POTASSIUM SERUM 3.8 MMOL/L (3.5-5.1); SODIUM LEVEL 139 MMOL/L (136-145)
[2023-02-11 05:40] VITALS: BP 120/85; TEMP 97.2; O2SAT 99
[2023-02-12 05:45] VITALS: BP 131/88; TEMP 98.1; O2SAT 97
[2023-02-13 06:00] VITALS: BP 112/90; TEMP 98.1; O2SAT 97
[2023-02-14 05:10] VITALS: BP 114/90; TEMP 97.9; O2SAT 97
[2023-02-15 06:03] VITALS: BP 119/81; TEMP 98.1; O2SAT 96
[2023-02-16] MEDS: ACETAMINOPHEN TAB 650MG DOSE (2X325MG) PO PRN (10:49)
[2023-02-17 06:00] VITALS: BP 151/83; TEMP 97.3; O2SAT 100
[2023-02-18 06:00] VITALS: BP 113/71; TEMP 97.2; O2SAT 97
[2023-02-19 06:00] VITALS: BP 124/82; TEMP 98.2; O2SAT 99
[2023-02-20 05:08] VITALS: BP 138/77; TEMP 97.5; O2SAT 98
[2023-02-21 04:38] VITALS: BP 132/84; TEMP 97.9; O2SAT 99
[2023-02-22 05:39] VITALS: BP 127/78; TEMP 98.1; O2SAT 99
[2023-02-23 06:00] VITALS: BP 156/83; TEMP 97.2; O2SAT 94
[2023-02-24 06:00] VITALS: BP 130/72; O2SAT 98
[2023-02-25 05:09] VITALS: BP 118/84; TEMP 97.5; O2SAT 99
[2023-02-27 05:20] VITALS: BP 112/68; TEMP 97.7; O2SAT 99
[2023-02-28 05:20] VITALS: BP 113/71; TEMP 96.6; O2SAT 98
[2023-03-01 04:44] VITALS: BP 120/79; TEMP 97.9; O2SAT 93
[2023-03-02 05:34] VITALS: BP 136/94; TEMP 97.7; O2SAT 98
[2023-03-03 05:18] VITALS: BP 109/77; TEMP 97.7; O2SAT 99
[2023-03-04 05:00] VITALS: BP 117/70; TEMP 98.1; O2SAT 99
[2023-03-05 05:20] VITALS: BP 143/92; TEMP 97.5; O2SAT 99
[2023-03-06 05:12] VITALS: BP 130/74; TEMP 97.8; O2SAT 98
[2023-03-06] MEDS ORDERED: ASPI81TAEC PO (07:14)
[2023-03-06] MEDS ORDERED: QUET1TAB17 PO (07:14)
[2023-03-06] MEDS ORDERED: ATOR1TAB21 PO (07:14)
[2023-03-07 06:30] VITALS: BP 121/83; TEMP 97.7; O2SAT 98
[2023-03-08 06:00] VITALS: BP 126/70; TEMP 98.1; O2SAT 99
[2023-03-09 06:00] VITALS: BP 150/83; TEMP 98; O2SAT 96
[2023-03-10 06:25] VITALS: BP 139/82; TEMP 97; O2SAT 96
[2023-03-11 05:13] VITALS: BP 120/87; TEMP 97.7; O2SAT 98
[2023-03-12 06:30] VITALS: BP 130/78; TEMP 98.6; O2SAT 97
[2023-03-13 04:00] VITALS: BP 133/87; TEMP 96.8; O2SAT 98
[2023-03-14 05:00] VITALS: BP 119/80; TEMP 97.7; O2SAT 97
[2023-03-15 05:53] VITALS: BP 135/80; TEMP 97; O2SAT 99
[2023-03-16 06:45] VITALS: BP 138/84; TEMP 97.7; O2SAT 98
[2023-03-17 05:42] VITALS: BP 140/90; TEMP 98.1; O2SAT 99
[2023-03-18 06:00] VITALS: BP 111/76; TEMP 97.7; O2SAT 99
[2023-03-19 04:59] VITALS: BP 140/80; TEMP 98.1; O2SAT 97
[2023-03-20 06:45] VITALS: BP 119/75; TEMP 97; O2SAT 98
[2023-03-21 06:30] VITALS: BP 136/86; TEMP 97.9; O2SAT 95
[2023-03-22 06:00] VITALS: BP 120/75; TEMP 97.9; O2SAT 100
[2023-03-23 06:00] VITALS: BP 137/73; TEMP 97.9; O2SAT 97
[2023-03-24 06:30] VITALS: BP 126/84; TEMP 97.5; O2SAT 99
[2023-03-25 06:20] VITALS: BP 133/91; TEMP 97.7; O2SAT 99
[2023-03-26 06:02] VITALS: BP 116/77; TEMP 98.3; O2SAT 98
[2023-03-27 06:00] VITALS: TEMP 97.9; O2SAT 98
[2023-03-28 05:23] VITALS: BP 122/76; TEMP 97.7; O2SAT 99
[2023-03-29 06:20] VITALS: BP 133/77; TEMP 97.7; O2SAT 98
[2023-03-30 06:18] VITALS: BP 132/85; TEMP 97.3; O2SAT 99
[2023-03-31 06:00] VITALS: BP 131/77; TEMP 98.1; O2SAT 93
[2023-04-01 06:00] VITALS: BP 119/68; TEMP 97.9; O2SAT 97
[2023-04-02 06:25] VITALS: BP 117/76; TEMP 97.5; O2SAT 99
[2023-04-03 06:30] VITALS: BP 128/72; TEMP 97.6; O2SAT 97
[2023-04-04 06:30] VITALS: BP 128/67; TEMP 98.1; O2SAT 99
[2023-04-05 06:00] VITALS: BP 114/68; TEMP 97.5; O2SAT 99
[2023-04-06 06:00] VITALS: BP 99/66; TEMP 98.2; O2SAT 95
[2023-04-06 23:47] VITALS: BP 130/80
[2023-04-07 06:00] VITALS: BP 112/70; TEMP 97.8; O2SAT 99
[2023-04-08 06:00] VITALS: BP 144/84; TEMP 97.3; O2SAT 99
[2023-04-09 05:50] VITALS: BP 120/84; O2SAT 94
[2023-04-10 04:00] VITALS: BP 149/87; TEMP 97.7; O2SAT 97
[2023-04-11 06:10] VITALS: BP 151/75; TEMP 97.3; O2SAT 100
[2023-04-12 06:00] VITALS: BP 134/76; TEMP 97; O2SAT 98
[2023-04-13 06:00] VITALS: BP 116/76; TEMP 98.1; O2SAT 98
[2023-04-14 05:40] VITALS: BP 108/72; TEMP 97.7; O2SAT 99
[2023-04-15 04:30] VITALS: BP 157/80; TEMP 97.5; O2SAT 97
[2023-04-16 05:13] VITALS: BP 134/73; TEMP 97.7; O2SAT 97
[2023-04-17 06:00] VITALS: BP 133/81; TEMP 97.9; O2SAT 99
[2023-04-18 05:31] VITALS: BP 124/88; TEMP 98.2; O2SAT 99
[2023-04-19 06:00] VITALS: BP 114/79; TEMP 97.6; O2SAT 99
[2023-04-20 05:44] VITALS: BP 118/76; TEMP 97; O2SAT 93
[2023-04-21 05:46] VITALS: BP 124/76; TEMP 98.1; O2SAT 96
[2023-04-22 06:21] VITALS: BP 119/91; TEMP 98; O2SAT 97
[2023-04-23 06:00] VITALS: BP 135/65; TEMP 97.7; O2SAT 95
[2023-04-24 04:40] VITALS: BP 137/76; TEMP 97.3; O2SAT 99
[2023-04-25 06:00] VITALS: BP 120/74; TEMP 97.6; O2SAT 99
[2023-04-27 06:00] VITALS: BP 130/72; TEMP 98.1; O2SAT 98
[2023-04-28 06:00] VITALS: BP 140/82; TEMP 97.5; O2SAT 100
[2023-04-30 06:00] VITALS: BP 138/78; TEMP 97; O2SAT 98
[2023-05-01 06:50] VITALS: BP 146/80; TEMP 98.1; O2SAT 99
[2023-05-02 06:00] VITALS: BP 134/58; TEMP 98.1; O2SAT 99
[2023-05-04 06:00] VITALS: BP 140/70; TEMP 97.5; O2SAT 100
[2023-05-05 06:00] VITALS: BP 144/78; TEMP 98.2; O2SAT 99
[2023-05-06 05:40] VITALS: BP 144/72; TEMP 97.9; O2SAT 99
[2023-05-07 06:00] VITALS: BP 124/70; TEMP 97.3; O2SAT 98
[2023-05-08 06:00] VITALS: BP 128/70; TEMP 97.2; O2SAT 100
[2023-05-09 03:50] VITALS: BP 136/74; TEMP 97.2; O2SAT 97
[2023-05-10 06:00] VITALS: BP 141/75; TEMP 97.9; O2SAT 99
[2023-05-11 06:34] VITALS: BP 128/84; TEMP 97.5; O2SAT 99
[2023-05-12 06:00] VITALS: BP 118/70; TEMP 97.6; O2SAT 95
[2023-05-13 05:43] VITALS: BP 115/70; TEMP 97.8; O2SAT 98
[2023-05-14 06:00] VITALS: BP 113/83; TEMP 97; O2SAT 97
[2023-05-15 04:00] VITALS: BP 120/76; TEMP 97.2; O2SAT 99
[2023-05-16 06:00] VITALS: BP 143/75; TEMP 97.9; O2SAT 98
[2023-05-17 06:21] VITALS: BP 130/78; TEMP 97.9; O2SAT 94
[2023-05-18 06:23] VITALS: BP 126/76; TEMP 97.7; O2SAT 96
[2023-05-19 06:00] VITALS: BP 124/78; TEMP 97.5; O2SAT 96
[2023-05-20 05:15] VITALS: BP 116/83; TEMP 97.8; O2SAT 97
[2023-05-21 08:04] VITALS: BP 131/77; TEMP 98.4; O2SAT 96
== END 2023-05-21 12:10 | DRG 421 ==
LOC: M ED 17:41 → EDBD 17:41 → M ED INP 22:32 → ENRESERV 23:12 → M PCU 23:50 → M MSPAV 10-08 14:52
PROVIDERS: ADMIT Family Medicine; ATTEND Internal Medicine
DX: E51.2 Wernicke's encephalopathy (principal); G92.8 Other toxic encephalopathy; N17.9 Acute kidney failure, unspecified; E87.20 Acidosis, unspecified; E87.1 Hypo-osmolality and hyponatremia; F01.50 Vascular dementia, unspecified severity, without behavioral disturbance, psychotic disturbance, mood disturbance, and anxiety; F10.10 Alcohol abuse, uncomplicated; F19.10 Other psychoactive substance abuse, uncomplicated; R41.82 Altered mental status, unspecified; F60.2 Antisocial personality disorder; G45.9 Transient cerebral ischemic attack, unspecified; E86.0 Dehydration; Z59.00 Homelessness unspecified; D72.829 Elevated white blood cell count, unspecified; Z91.119 Patient's noncompliance with dietary regimen due to unspecified reason; F41.9 Anxiety disorder, unspecified; E53.8 Deficiency of other specified B group vitamins; Z20.822 Contact with and (suspected) exposure to COVID-19